=== PATIENT | male | born 1995 | race African-American/Black ===

== ENCOUNTER 2020-11-19 21:09 | Emergency (ER) | payer OTHER ==
[~2020-11-19] VITALS: Ht 172.7 cm; Wt 61.7 kg
[2020-11-19 21:23] VITALS: BP 115/69; TEMP 97.8
== END 2020-11-19 22:03 | disposition home or self-care (01) ==
LOC: ED 21:09
DX: K21.9 Gastro-esophageal reflux disease without esophagitis (principal)
CPT/HCPCS: 81000; 99283